=== PATIENT | female | born 1980 | race Caucasian/White ===

== ENCOUNTER → 2016-12-01 | Outpatient (REF) | payer BC | LOC: M LABDRAW1 15:39 | PROVIDERS: ATTEND Internal Medicine Endocrinology, Diabetes & Metabolism | DX: E22.1 Hyperprolactinemia (principal) ==

== ENCOUNTER → 2017-03-19 | Outpatient (REF) | payer BC | LOC: M LABDRAW1 13:08 | PROVIDERS: ATTEND Internal Medicine Endocrinology, Diabetes & Metabolism | DX: E22.1 Hyperprolactinemia (principal) ==

== ENCOUNTER → 2017-09-02 | Outpatient (CLI) | payer BC ==
[~2017-09-02] MED LIST: PROHANCE 279.3MG/ML 15ML VIAL (A9576) As Ordered ONE
--- NOTE | 2017-09-02 16:23 | REP ---
MR PITUITARY WITHOUT AND WITH CONTRAST: HISTORY: Benign neoplasm. CONTRAST: ProHance 7 mL. COMPARISON: 09/29/2016 Several punctate areas of increased signal intensity on T2 weighted images are present in the periventricular and subcortical white matter of the frontal and left parietal lobes. There is no intraparenchymal hemorrhage, infarct, mass or midline shift. A pineal cyst is present. The cyst measures 8 mm in transverse x 10 mm in AP dimensions and is unchanged in size compared to the previous study.. The ventricular system is normal in appearance. There is no extracerebral collection. A 7 mm focus of decreased signal intensity on T1 weighted images is present in the pituitary gland. There is mild homogenous enhancement with contrast. This represents a microadenoma. The pituitary gland is normal in size measuring 7.8 mm in height. The infundibulum is midline. The cavernous sinus, optic chiasm and hypothalamus are normal in appearance. The sinuses are clear. IMPRESSION: 7 mm pituitary microadenoma unchanged in size compared to the previous study. Signed by Gordon Rod MD 09/02/2017 04:30 P
== END ==
LOC: M RAD 14:40
PROVIDERS: ATTEND Internal Medicine Endocrinology, Diabetes & Metabolism
DX: D35.4 Benign neoplasm of pineal gland (principal)
CPT/HCPCS: 70553; A9576

== ENCOUNTER → 2019-09-11 | Outpatient (REF) | payer BC ==
[2019-09-14 14:10] LABS: HPV HYBRID CAPTURE II Negative (Negative)
== END ==
LOC: M LAB LCGH 13:01
PROVIDERS: ATTEND Nurse Practitioner Adult Health
DX: Z12.4 Encounter for screening for malignant neoplasm of cervix (principal)
CPT/HCPCS: 87624; G0123

== ENCOUNTER → 2019-09-11 | Outpatient (CLI) | payer BC ==
--- NOTE | 2019-09-11 14:30 | REP ---
MRI brain/pituitary: 09/11/2019. Indication: Hyperprolactinemia. Comparison: 09/02/2017. Findings: Findings: There is a cystic appearing pituitary lesion measuring 6.2 x 4.6 x 7.6 mm within the anterior mid pituitary gland with heterogeneous enhancement. There is a 1.5 x 8.2 x 10.3 mm cystic pineal region lesion. There is no significant pathologic enhancement of this finding. There are no areas of restricted diffusion. There is no elevated intracranial pressure, mass effect or hydrocephalous. No significant signal abnormalities are present within the brainstem or brain parenchyma. The large intracranial flow voids are present and unremarkable. Impression: Stable partially cystic pituitary lesion most consistent with a partially degenerated/cystic microadenoma. Stable benign appearing pineal region cyst. No acute intracranial abnormalities. Electronically Signed by Ismael Monzon DO 09/11/2019 02:21 P
== END ==
LOC: M RAD 12:32
PROVIDERS: ATTEND Internal Medicine Endocrinology, Diabetes & Metabolism
DX: E23.7 Disorder of pituitary gland, unspecified (principal); E34.8 Other specified endocrine disorders; E22.1 Hyperprolactinemia
CPT/HCPCS: 70553; A9576

== ENCOUNTER → 2025-10-31 | Outpatient (REF) | payer BC, OTHER | LOC: M SFHCDERM 06:45 | PROVIDERS: ATTEND Physician Assistant | DX: D48.9 Neoplasm of uncertain behavior, unspecified (principal) ==